=== PATIENT | male | born 1965 | race Hispanic/Latino ===

== ENCOUNTER 2018-02-07 12:25 | Emergency (ER) | payer OTHER ==
[2018-02-07 12:38] VITALS: BP 128/84; PULSE 67; RESP 18; TEMP 97.9; O2SAT 97
--- NOTE | 2018-02-07 13:20 | C.PDOC ---
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 Patient states that he tripped and fell, striking his wrist on steel beam. Patient denies having limited ROM and numbness in wrist. Time Seen by Provider: 02/07/18 12:49 Chief Complaint (Nursing): Upper Extremity Problem/Injury History Per: Patient History/Exam Limitations: no limitations Onset/Duration Of Symptoms: Hrs Current Symptoms Are (Timing): Still Present Severity: Moderate Past Medical History Reviewed: Historical Data, Nursing Documentation, Vital Signs Vital Signs: Last Vital Signs Temp 97.9 F 02/07/18 12:35 Pulse 67 02/07/18 12:35 Resp 18 02/07/18 12:35 BP 128/84 02/07/18 12:35 Pulse Ox 97 02/07/18 12:35 - Medical History PMH: No Chronic Diseases Surgical History: No Surg Hx Family History: States: No Known Family Hx - Social History Hx Alcohol Use: No Hx Substance Use: No - Immunization History Hx Tetanus Toxoid Vaccination: No Hx Influenza Vaccination: No Hx Pneumococcal Vaccination: No Review Of Systems Except As Marked, All Systems Reviewed And Found Negative. Musculoskeletal: Positive for: Other (left wrist pain) Neurological: Negative for: Weakness, Numbness Physical Exam - Physical Exam Appears: Non-toxic, No Acute Distress Skin: Normal Color, Warm, Dry Head: Atraumatic, Normacephalic Eye(s): bilateral: Normal Inspection Nose: Normal Oral Mucosa: Moist Neck: Supple Chest: Symmetrical Extremity: Normal ROM, Tenderness (mild tenderness to ulnar aspect of left wrist), Capillary Refill (<2 seconds), Swelling (mild swelling to ulnar aspect of left wrist) Pulses: Left Radial: Normal, Right Radial: Normal Neurological/Psych: Oriented x3, Normal Speech ED Course And Treatment O2 Sat by Pulse Oximetry: 97 (RA) Pulse Ox Interpretation: Normal - Other Rad X-Ray-Left Wrist X-Ray: Viewed By Me, Read By Radiologist Interpretation: PROCEDURE: Left Wrist Radiographs. HISTORY: pain s.p fall. COMPARISON: None available. FINDINGS: BONES: No acute displaced fracture. Tiny rounded lucency within the capitate. JOINTS: No dislocation. SOFT TISSUES: Unremarkable. No evidence of radiopaque foreign body. OTHER FINDINGS: None. IMPRESSION: No acute displaced fracture, dislocation, or significant joint effusion identified. If symptoms persist or if there is continued clinical concern, x-ray follow-up in 7-10 days should be considered. Medical Decision Making Medical Decision Making: Impression: Contusion of left wrist Plan: --X-Ray : Left Wrist --Motrin PO Progress: X-Ray- Left Wrist was negative for fracture. Wrist splint has been applied by patient service technician pst. Patient has been discharged and instructed to follow up with orthopedics if pain persists more than 1 week. Disposition Counseled Patient/Family Regarding: Diagnosis, Need For Followup, Rx Given - Disposition Referrals: Derek Ambrose MD [Staff Provider] - Disposition: HOME/ ROUTINE Disposition Time: 13:20 Condition: GOOD Additional Instructions: Your xray was normal, no fracture. Please apply ice to area 15 minutes three times a day. Take Motrin as needed for pain every 6 hours, with food to not upset stomach. Follow up with orthopedic if pain persists over one week. Prescriptions: Ibuprofen [Motrin] 600 mg PO Q8 #30 tab Instructions: Contusion (DC) Forms: [employer] ([employer]), Work Excuse - POA Present On Arrival: Falls Or Trauma - Clinical Impression Clinical Impression: Contusion of left wrist - PA / ELECTRONIC TECH / Resident Statement MD/DO has reviewed & agrees with the documentation as recorded. - Scribe Statement The provider has reviewed the documentation as recorded by the Rachaelibe Roberto Clark Provider Attestation All medical record entries made by the Scribe were at my direction and personally dictated by me. I have reviewed the chart and agree that the record accurately reflects my personal performance of the history, physical exam, medical decision making, and the department course for this patient. I have also personally directed, reviewed, and agree with the discharge instructions and disposition.
--- NOTE | 2018-02-07 13:36 | RAD ---
PROCEDURE: Left Wrist Radiographs. HISTORY: pain s.p fall COMPARISON: None available. FINDINGS: BONES: No acute displaced fracture. Tiny rounded lucency within the capitate. JOINTS: No dislocation. SOFT TISSUES: Unremarkable. No evidence of radiopaque foreign body OTHER FINDINGS: None. IMPRESSION: No acute displaced fracture, dislocation, or significant joint effusion identified. If symptoms persist or if there is continued clinical concern, x-ray follow-up in 7-10 days should be considered.
== END 2018-02-07 13:39 | disposition home or self-care (01) ==
LOC: C.ER 12:25
DX: S60.212A Contusion of left wrist, initial encounter (principal); W01.0XXA Fall on same level from slipping, tripping and stumbling without subsequent striking against object, initial encounter